=== PATIENT | female | born 1965 | race Caucasian/White ===

== ENCOUNTER → 2017-02-20 | Outpatient (CLI) | payer BC ==
--- NOTE | 2017-02-20 19:36 | MR ---
EXAMINATION TYPE: MR knee LT wo con DATE OF EXAM: 02/20/2017 COMPARISON: NONE HISTORY: Left knee pain x 3 years TECHNIQUE: Multiplanar, multisequence imaging of the left knee is performed without IV contrast. FINDINGS: MEDIAL MENISCUS: Linear signal within the posterior horn medial meniscus felt to be more typical of m yxoid degeneration. Subtle linear simple tear of the posterior horn of the meniscus not excluded lynn elate clinically.. LATERAL MENISCUS: Anterior and posterior horns are intact without tear. CRUCIATE LIGAMENTS: The anterior and posterior cruciate ligaments are intact and unremarkable. COLLATERAL LIGAMENTS: The medial collateral ligament and lateral collateral ligament complex are inta ct and unremarkable. EXTENSOR MECHANISM: Visualized quadriceps and patellar tendons are intact. EFFUSION: No significant suprapatellar joint effusion. POPLITEAL CYST: No popliteal/jerez cyst. TRICOMPARTMENT SPACES: Mild hypertrophic change of the inferior margin patella. 3. Mild narrowing of the patellofemoral joint and medial compartment knee joint with no erosive galvin e CARTILAGE: Cartilage is preserved within the joint spaces of the knee. However, there is grade III ch ondromalacia involving the lateral patellar facet BONE MARROW SIGNAL: No focal abnormal marrow signal is appreciated. IMPRESSION: 1. Grade III chondromalacia lateral patellar facet with findings compatible with mild osteoarthritis. 2. Linear signal within the posterior horn medial meniscus felt to be more typical of myxoid degenera tion. Subtle linear simple tear of the posterior horn of the meniscus not excluded correlate clinical ly.
== END | disposition home or self-care (01) ==
LOC: RADMRIMAIN 18:19
PROVIDERS: ATTEND Orthopaedic Surgery
DX: M22.42 Chondromalacia patellae, left knee (principal)

== ENCOUNTER 2017-03-12 09:55 | Day surgery (SDC) | payer BC ==
[2017-03-06 12:36] VITALS: BMI 26.6
--- NOTE | 2017-03-11 12:44 | HP ---
HISTORY AND PHYSICAL DATE OF SERVICE: 03/12/2017 Malissa Macias is a 51-year-old patient seen with left knee pain. We discussed treatment options, she elected to proceed with left knee arthroscopy. Consent was obtained. PAST MEDICAL HISTORY: Hypertension, depression. PAST SURGICAL HISTORY: Noncontributory. DAILY MEDICATIONS: 1. Atenolol. 2. Lisinopril. 3. Gabapentin. ALLERGIES: PREDNISONE. SOCIAL HISTORY: Patient smokes 1 pack cigarettes daily. PHYSICAL EVALUATION OF THE LEFT KNEE: Range of motion is 0 to 125 degrees. Tenderness medial joint line. Positive medial Doretha's. Ligaments stable. Crepitus along the patellofemoral compartment range of motion. Hip rotation without pain. Distal neurovascular exam is intact. Radiographs of the left knee revealed mild osteoarthritis. An MRI of the left knee revealed medial meniscal tear and osteoarthritis. IMPRESSION: Internal derangement, left knee with medial meniscal tear. PLAN: Left knee arthroscopy with partial meniscectomy and debridement. MMODL / IJN: [id number] /
[~2017-03-12 09:55] MED LIST: DEXAMETHASONE SOD PHOSPHATE 10 MG/ML 1 ML VIAL IV ONE; GENTAMICIN 320 MG in SODIUM CHLORIDE 0.9% 100 ML IVPB ONE; LACTATED RINGERS 1,000 ML IV SCH; MIDAZOLAM 2 MG/2 ML VIAL IV PRN; ONDANSETRON 4 MG/2 ML VIAL IVP ONE; ceFAZolin IN SWFI 2 GM/20 ML SYRINGE IVP ONE
[2017-03-12] MEDS ORDERED: LIDOCAINE 1% 20 ML VIAL (10MG/ML) FOR IV START INTRADERMA ONE (10:58)
[2017-03-12 11:11] VITALS: RESP 16
[2017-03-12] MEDS ORDERED: SCOPOLAMINE 1.5MG/72HR PATCH TRANSDERM ONE (11:19)
[2017-03-12] MEDS ORDERED: LIDOCAINE 1% INJ 10MG/ML (20 ML MDV) ONE (12:13)
[2017-03-12] MEDS ORDERED: ePHEDrine SULFATE/0.9% NACL/PF 50 MG/5 ML SYRINGE IV ONE (12:13)
[2017-03-12] MEDS ORDERED: PROPOFOL 10 MG/ML 20 ML VIAL IV ONE (12:13)
[2017-03-12] MEDS ORDERED: MIDAZOLAM 2 MG/2 ML VIAL ONE (12:13)
[2017-03-12] MEDS ORDERED: fentaNYL (PF) 50 MCG/ML 2 ML AMP ONE (12:13)
[2017-03-12] MEDS ORDERED: BUPIVACAINE (PF) 0.25% 30 ML VIAL SQ ONE (12:43)
--- NOTE | 2017-03-12 13:10 | P.OP ---
Date of Procedure: 03/12/17 Preoperative Diagnosis: Internal derangement left knee Postoperative Diagnosis: 1. Tear medial and lateral meniscus left knee 2. Grade 1/2 chondromalacia medial femoral condyle left knee 3. Grade 2 chondromalacia medial tibial plateau left knee 4. Grade 2/3 chondromalacia patella left knee 5. Reactive synovitis medial and suprapatellar compartments left knee Procedure(s) Performed: 1. Arthroscopic partial medial and lateral meniscectomy left knee 2. Arthroscopic chondroplasty medial femoral condyle left knee 3. Arthroscopic chondroplasty medial tibial plateau left knee 4. Arthroscopic chondroplasty patella left knee 5. Arthroscopic partial synovectomy medial and suprapatellar compartments left knee Anesthesia: JEOVANYA, local Surgeon: Bro Sharif Estimated Blood Loss (ml): 12 Pathology: none sent Condition: stable Disposition: PACU Indications for Procedure: 51-year-old patient seen with progressive left knee pain. After having treatment options discussed, she elected to proceed with arthroscopy. Operative Findings: See description of procedure Description of Procedure: Patient was taken to the operative suite. Patient underwent a general anesthetic by the department of anesthesia. Patient was given preoperative antibiotics. The left lower extremity was placed in a well-padded arthroscopic leg berry. The left leg was prepped and draped in the normal sterile orthopedic fashion. A lateral parapatellar and suprapatellar incision was made. Trochars were inserted. Arthroscopy was initiated. Suprapatellar pouch revealed diffuse thick reactive synovitis. The patellofemoral joint appeared to articulate congruently. There was grade 2/3 chondromalacia of the patella with some osteochondral tears present. The scope was guided into the medial gutter. No loose bodies or plica were identified. The scope was then guided into the medial compartment. A medial parapatellar incision was made. Trocar inserted followed by probe. There was a radial tear involving the posterior horn of the medial meniscus. There was an area of grade 2 chondromalacia posterior aspect medial tibial plateau with osteochondral tears. There was an area of grade 1/2 chondromalacia anterior weightbearing surface medial femoral condyle with osteochondral tear present. There was reactive synovitis anteriorly. I performed a partial medial meniscectomy down to stable tissue. I performed a chondroplasty of the medial femoral condyle and tibial plateau down to stable tissue. I performed a partial synovectomy. The residual meniscus was probed and found to be stable. The residual osteochondral surfaces of the tibial plateau and femoral condyle were stable. Scope and probe were then guided into the intercondylar notch. Cruciates were identified , probed and found to be stable. The scope and probe were then guided into lateral compartment. There was a small radial tear in the posterior horn lateral meniscus. Were grade 1 chondromalacia changes of lateral compartment. No loose bodies or reactive synovitis. I performed a partial lateral meniscectomy down to stable tissue. The residual meniscus was found to be stable. The scope was in guided back into the suprapatellar compartment. I introduced a motorized shaver into the suprapatellar compartment. I debrided some piecemeal fragments of meniscus I encountered. I performed a chondroplasty of the patella down to stable tissue. I performed a partial synovectomy. The residual osteochondral surface of the patella was probed and found to be stable. I took one more look around the entire knee, no residual debris. Instruments were now removed from the joint. The joint was infiltrated with .25% Marcaine. Steri-Strips were applied to the portal sites. Sterile dressings were applied. The patient was placed into a NORRIS hose. No tourniquet was utilized. The patient was awakened, transferred to a bed and taken to recovery stable satisfactory condition.
[2017-03-12 13:18] VITALS: TEMP 98.1
[2017-03-12] MEDS: HYDROmorphone 0.5 MG/0.5 ML SYRINGE IVP PRN ×2 (13:20→13:33)
[2017-03-12 14:57] VITALS: BP 107/70; PULSE 76
== END 2017-03-12 15:30 | disposition home or self-care (01) ==
LOC: OR 09:55
PROVIDERS: ATTEND Orthopaedic Surgery
DX: S83.242A Other tear of medial meniscus, current injury, left knee, initial encounter (principal); M22.42 Chondromalacia patellae, left knee; M65.862 Other synovitis and tenosynovitis, left lower leg; I10 Essential (primary) hypertension; F17.210 Nicotine dependence, cigarettes, uncomplicated; M79.7 Fibromyalgia; F32.9 Major depressive disorder, single episode, unspecified; Z79.891 Long term (current) use of opiate analgesic; Z79.899 Other long term (current) drug therapy; Z88.8 Allergy status to other drugs, medicaments and biological substances
CPT/HCPCS: 29880; J2250; J1100; J2405; J2001; J3010; J1580; J2704; J1170; J0690